=== PATIENT | female | born 1985 | race Hispanic/Latino ===

== ENCOUNTER 2018-03-08 06:08 | Day surgery (SDC) | payer OTHER ==
[2018-03-04 10:51] LABS: Basophils # (Auto) 0.1 K/mm3 (0.0-0.1); Basophils % (Auto) 0.5 % (0.0-1.8); Eosinophils # (Auto) 0.2 K/mm3 (0.0-0.4); Eosinophils % (Auto) 1.9 % (0.0-4.3); Hematocrit 42.4 % (30.3-42.9); Hemoglobin 14.2 gm/dl (10.1-14.3); Lymphocytes # (Auto) 2.4 K/mm3 (1.2-5.4); Lymphocytes % (Auto) 22.3 % (13.4-35.0); Mean Corpuscular HGB Conc 33 % (30-34); Mean Corpuscular Hemoglobin 31 pg (28-32); Mean Corpuscular Volume 94 fl (79-97); Monocytes # (Auto) 0.7 K/mm3 (0.0-0.8); Monocytes % (Auto) 6.3 % (0.0-7.3); Platelet Count 222 K/mm3 (140-440); Red Blood Count 4.53 M/mm3 (3.65-5.03); Red Cell Distribution Width 15.1 % (13.2-15.2)
--- NOTE | 2018-03-08 07:28 | Anesthesia Consultation ---
Anesthesia Consult and Med Hx Date of service: 03/08/18 - Airway Anesthetic Teeth Evaluation: Good ROM Head & Neck: Adequate Mental/Hyoid Distance: Adequate Mallampati Class: Class II Intubation Access Assessment: Good - Pulmonary Exam CTA: Yes - Cardiac Exam Cardiac Exam: No Murmur - Pre-Operative Health Status ASA Pre-Surgery Classification: ASA2 Proposed Anesthetic Plan: General - Pulmonary Hx Smoking: Yes - Central Nervous System Hx Psychiatric Problems: Yes - Hematic Hx Anemia: Yes - Other Systems Hx Alcohol Use: Yes (Occas) Hx Cancer: No
--- NOTE | 2018-03-08 07:29 | Anesthesia Day of Surgery ---
Anesthesia Day of Surgery - Day of Surgery Patient Examined: Yes Patient H&P Reviewed: Yes Patient is NPO: Yes
[2018-03-08] MEDS ORDERED: SILVER NITRATE TP ONE (07:41)
[2018-03-08] MEDS ORDERED: DIPRIVAN 10 MG/ML IV ONE (07:43)
[2018-03-08] MEDS: LACTATED RINGERS 1,000 ML IV SCH ×2 (07:52→09:38)
--- NOTE | 2018-03-08 07:55 | Short Stay Summary ---
Short Stay Documentation Date of service: 03/08/18 Narrative H&P: Pt is a 32yo WF LMP 02/11/18 presents to the office complaining of endometriosis and prolonged heavy vaginal bleeding unresolved with hormonal therapy. Pelvic u/s showed a slightly enlarged uterus without fibroids and endometrial biopsy was benign. She is now scheduled for a Novasure endometrial ablation. - History Principal diagnosis: Menorrhagia H&P: obtained from office Past Medical History: other (Depression; Endometriosis) Past Surgical History: , tonsillectomy, Other (BTL) Social history: no significant social history, - Allergies and Medications Current Medications: Allergies No Known Allergies Allergy (Unverified 03/03/18 16:19) Home Medications Medication Instructions Recorded Confirmed Last Taken Type DULoxetine [Cymbalta] 60 mg PO QDAY 03/03/18 03/03/18 Unknown History Escitalopram Oxalate [Lexapro] 20 mg PO DAILY 03/03/18 03/03/18 Unknown History clonazePAM [Clonazepam] 1 mg PO HS 03/03/18 03/03/18 Unknown History Active Medications Famotidine (Pepcid) 20 mg PO PREOP NR Stop: 03/08/18 23:59 Last Admin: 03/08/18 07:52 Dose: 20 mg Lactated Ringer's (Lactated Ringers) 1,000 mls @ 100 mls/hr IV DIRECT ESTHER Last Admin: 03/08/18 07:52 Dose: 100 mls/hr Midazolam HCl (Versed) 2 mg IV PREOP NR Stop: 03/08/18 23:59 - Physical exam General appearance: no acute distress Integumentary: no rash HEENT: Atraumatic Lungs: Clear to auscultation Breasts: deferred Heart: Regular rate Gastrointestinal: normal Female Genitourinary: deferred Rectal Exam: deferred Extremities: no ischemia Neurological: Normal gait, Normal speech - Brief post op/procedure progress note Date of procedure: 03/08/18 Pre-op diagnosis: 1. Dysfunctional uterine bleeding 2. Menorrhagia 3. History of endometri Post-op diagnosis: same Procedure: 1. Hysteroscopy 2. NovaSure endometrial ablation Anesthesia: MAC Findings: A 10 week size uterus sounded to 9.5 cm. Uterine cavity length 5.5 cm, cavity width 4.5 cm. Lush amounts of endometrial tissue. Surgeon: DEANDRE JONES Estimated blood loss: minimal Pathology: none Condition: stable - Hospital course Hospital course: Unremarkable - Disposition Condition at discharge: Good Disposition: DC-01 TO HOME OR SELFCARE - Discharge Diagnoses (1) Dysfunctional uterine bleeding Status: Acute (2) Menorrhagia with irregular cycle Status: Acute Short Stay Discharge Plan Activity: no restrictions Diet: regular Follow up with: JASON MAHER MD [Primary Care Provider] - 7 Days DEANDRE JONES MD [Staff Physician] - 14 Days Prescriptions: HYDROcodone/APAP 5-325 [Correll 5/325] 1 each PO Q6HR PRN #20 tablet PRN Reason: Pain
[2018-03-08] MEDS ORDERED: PEPCID PO NR (08:00)
[2018-03-08] MEDS ORDERED: ANCEF/STERILE WATER 2 GM/20 ML 2 GM/20 ML SYRINGE IV NR (08:00)
[2018-03-08] MEDS ORDERED: VERSED IV NR (08:00)
[2018-03-08] MEDS ORDERED: TORADOL IV PRN (08:14)
[2018-03-08] MEDS ORDERED: ZOFRAN ONE (08:26)
[2018-03-08] MEDS ORDERED: DECADRON ONE (08:26)
[2018-03-08] MEDS ORDERED: XYLOCAINE MPF 2% ONE (08:30)
[2018-03-08] MEDS ORDERED: TORADOL ONE (08:30)
[2018-03-08] MEDS ORDERED: NACL 0.9% IR ONE (08:35)
--- NOTE | 2018-03-08 09:06 | Operative Report ---
Operative Report Operative Report: Date of procedure: 03/08/2018 Pre-operative diagnosis: 1. Dysfunctional uterine bleeding 2. Menorrhagia Post-operative diagnosis: Same Procedure name(s): 1. Hysteroscopy 2. NovaSure endometrial ablation Surgeon: Moises Holcomb MD Promotions Assistant: None Anesthesia: Gen. mask EBL: 10 mL's Findings: A 10 week size uterus sounded to 9.5 cm. Uterine cavity length 5.5 cm , cavity width 4.5 cm, and 136 W of power was used for 67 seconds to perform the ablation. Procedure: After the patient was correctly identified, she was prepped and draped in the usual sterile fashion and placed in the dorsolithotomy position. First the bladder was emptied using a straight catheter, and the speculum was placed in vaginal vault and the anterior lip of the cervix was grasped using single-tooth tenaculum. The uterus was sounded to 9.5 cm, and the cervical os was sequentially dilated. The hysteroscope was introduced into the cervical canal showing a lush amount of endometrial tissue. The hysteroscope was then removed and replaced with the NovaSure device. The uterine cavity length was 5.5 cm and the width was 4.5 cm, and 136 W of power used for 67 seconds to perform the ablation. The NovaSure device was removed and replaced with the hysteroscope which showed excellent ablation of endometrial cavity. At this point the procedure was considered complete. All instruments removed from the vagina, the patient tolerated the procedure well and was transferred to recovery room in stable condition.
[2018-03-08] MEDS: SUBLIMAZE IV PRN ×2 (09:16→09:30)
[2018-03-08 10:10] VITALS: BP 105/66
--- NOTE | 2018-03-08 10:29 | Post Anesthesia Evaluation ---
- Post Anesthesia Evaluation Patient Participated: Yes Airway Patent: Yes Stable Respiratory Function: Yes Nausea/Vomiting: No Temp > 96.8F: Yes Pain Manageable: Yes Adequeate Hydration: No
== END 2018-03-08 10:35 | disposition home or self-care (01) ==
LOC: OR 06:08
PROVIDERS: ATTEND Obstetrics & Gynecology
DX: N93.8 Other specified abnormal uterine and vaginal bleeding (principal); N92.1 Excessive and frequent menstruation with irregular cycle; K21.9 Gastro-esophageal reflux disease without esophagitis; F32.9 Major depressive disorder, single episode, unspecified; F17.200 Nicotine dependence, unspecified, uncomplicated; Z79.899 Other long term (current) drug therapy; Z90.49 Acquired absence of other specified parts of digestive tract; Z98.51 Tubal ligation status; Z72.89 Other problems related to lifestyle; Z86.2 Personal history of diseases of the blood and blood-forming organs and certain disorders involving the immune mechanism; Z98.890 Other specified postprocedural states
CPT/HCPCS: 36415; 58563; 84703; 85025; J0690; J1100; J1885; J2250; J2405; J2704; J3010; J7120